=== PATIENT | female | born 1945 | race Caucasian/White ===

== ENCOUNTER 2024-08-25 18:47 | Inpatient (IN) | payer MEDICARE, BC ==
--- NOTE | 2024-08-25 18:55 | ED ---
General Adult HPI - General Stated complaint: AFIB Time Seen by Provider: 08/25/24 18:47 Source: RN notes reviewed, old records reviewed - History of Present Illness Initial comments: This is an 79-year-old female who presents to the emergency department stating that she was having no symptoms when all of a sudden her defibrillator went off at 103 times. Patient states she never had any chest pain palpitations difficulty breathing shortness of breath. Patient states she had the defibrillator placed about 6 months ago and she has never had a fire off before. According to EMS after the defibrillator fired they placed her on a monitor and it looked like she was in A-fib with rapid ventricular response. Patient currently is about 110 beats a minute according to EMS. Patient states she remains asymptomatic. Patient denies any recent fevers in the last 2 weeks she states about 2 weeks ago she did have RSV. Patient denies any abdominal pain patient denies any chest pain patient denies any headache patient denies nu mbness weakness. After patient was here couple hours she remembered that just prior to her defibrillator shocking her she had taken albuterol and felt very shaky. It was shortly after this time that the defibrillator shocked her 3 times. Patient states she has been on steroids since she had RSV. - Related Data Allergies Allergy/AdvReac Type Severity Reaction Status Date / Time Penicillins Allergy Rash/Hives Verified 08/25/24 18:58 codeine AdvReac Confusion Verified 08/25/24 18:58 Review of Systems ROS Statement: Those systems with pertinent positive or pertinent negative responses have been documented in the HPI. ROS Other: All systems not noted in ROS Statement are negative. General Exam - General Exam Comments Initial Comments: GENERAL: Patient is well-developed and well-nourished. Patient is nontoxic and well- hydrated and is in no acute distress. ENT: Neck is soft and supple. No significant lymphadenopathy is noted. Oropharynx is clear. Moist mucous membranes. Neck has full range of motion without eliciting any pain. EYES: The sclera were anicteric and conjunctiva were pink and moist. Extraocular movements were intact and pupils were equal round and reactive to light. Eyelids were unremarkable. PULMONARY: Unlabored respirations. Good breath sounds bilaterally. No audible rales rhonchi or wheezing was noted. CARDIOVASCULAR: Tachycardic at about 110 beats a minute ABDOMEN: Soft and nontender with normal bowel sounds. SKIN: Skin is clear with no lesions or rashes and otherwise unremarkable. NEUROLOGIC: Patient is alert and oriented x3. Cranial nerves II through XII are grossly intact. Motor and sensory are also intact. Normal speech, volume and content. Symmetrical smile. MUSCULOSKELETAL: Normal extremities with adequate strength and full range of motion. LYMPHATICS: No significant lymphadenopathy is noted PSYCHIATRIC: Normal psychiatric evaluation. Course Vital Signs 08/25/24 08/25/24 08/25/24 18:49 19:43 20:17 Temperature 97.6 F Pulse Rate 111 H 106 H 98 Respiratory 20 17 14 Rate Blood Pressure 143/118 135/57 110/75 O2 Sat by Pulse 97 95 94 L Oximetry 08/25/24 20:34 Temperature Pulse Rate 93 Respiratory 14 Rate Blood Pressure O2 Sat by Pulse 97 Oximetry Medical Decision Making - Medical Decision Making EKG is interpreted by myself but EKG shows a paced rhythm at 106 bpm. Over the 125 QRS of 142 QT interval 358 QTc is 420. Was pt. sent in by a medical professional or institution ([facility], [facility], urgent care, hospital, or assisted...) When possible be specific @ -No Did you speak to anyone other than the patient for history (EMS, parent, family, police, friend...)? What history was obtained from this source @ -No Did you review nursing and triage notes (agree or disagree)? Why? @ -I reviewed and agree with nursing and triage notes Were old charts reviewed (outside hosp., previous admission, EMS record, old EKG, old radiological studies, urgent care reports/EKG's, assisted records)? Report findings @ -No old charts were reviewed Differential Diagnosis? @ -Tachycardia, A-fib with rapid ventricular response, malfunctioning defibrillator. This is not an all-inclusive list EKG interpreted by me (3pts min.). @ -As above X-rays interpreted by me (1pt min.). @ -None done CT interpreted by me (1pt min.). @ -None done U/S interpreted by me (1pt. min.). @ -None done What testing was considered but not performed or refused? (CT, X-rays, U/S, labs)? Why? @ -None What meds were considered but not given or refused? Why? @ -None Did you discuss the management of the patient with other professionals (professionals i.e. Dr., PA, [facility], lab, RT, psych nurse, director of social work, global marketing specialist, teacher, chief fundraising officer, rn case manager)? Give summary @ -I spoke with Dr. Woody he agreed to admit the patient. Patient did not want any cardiology consult Was smoking cessation discussed for >3mins.? @ -No Was critical care preformed (if so, how long)? @ -No Were there social determinants of health that impacted care today? How? (Homelessness, low income, unemployed, alcoholism, drug addiction, transportation, low edu. Level, literacy, decrease access to med. care, group home, rehab)? @ -No Was there de-escalation of care discussed even if they declined (Discuss DNR or withdrawal of care, Hospice)? DNR status @ -No What co-morbidities impacted this encounter? (DM, HTN, Smoking, COPD, CAD, Cancer, CVA, ARF, Chemo, Hep., AIDS, mental health diagnosis, sleep apnea, morbid obesity)? @ -None Was patient admitted / discharged? Hospital course, mention meds given and route, prescriptions, significant lab abnormalities, going to OR and other pertinent info. @ -Patient was asymptomatic throughout her ED stay and had already converted into a paced rhythm while in the emergency department. Patient did have some abnormal labs she had elevated white count sugar of 523 potassium was 6.8 which was slightly hemolyzed a sodium of 129 and a troponin was 0.215. Patient's family and herself insisted on not having any cardiology involvement and I told this to Dr. Woody. Undiagnosed new problem with uncertain prognosis? @ -No Drug Therapy requiring intensive monitoring for toxicity (Heparin, Nitro, Insulin, Cardizem)? @ -No Were any procedures done? @ -No Diagnosis/symptom? @ -Defibrillator discharge Acute, or Chronic, or Acute on Chronic? @ -Default Uncomplicated (without systemic symptoms) or Complicated (systemic symptoms)? @ -Default Side effects of treatment? @ -No Exacerbation, Progression, or Severe Exacerbation? @ -No Poses a threat to life or bodily function? How? (Chest pain, [place], [place], pneumonia, PE, COPD, DKA, ARF, appy, cholecystitis, CVA, Diverticulitis, Homicidal, Suicidal, threat to staff... and all critical care pts) @ -Yes depending upon what arrhythmia occurred this could potentially kill the patient Diagnosis/symptom? @ -Hyperglycemia Acute, or Chronic, or Acute on Chronic? @ -Acute Uncomplicated (without systemic symptoms) or Complicated (systemic symptoms)? @ -Complicated Side effects of treatment? @ -None Exacerbation, Progression, or Severe Exacerbation] @ -No Poses a threat to life or bodily function? @ -Yes this could lead to severe dehydration and endorgan dysfunction Diagnosis/symptom? @ -Hyperkalemia Acute, or Chronic, or Acute on Chronic? @ -Default Uncomplicated (without systemic symptoms) or Complicated (systemic symptoms)? @ -Complicated Side effects of treatment? @ -None Exacerbation, Progression, or Severe Exacerbation] @ -No Poses a threat to life or bodily function? @ -Yes this can lead to a potential arrhythmia and Diagnosis/symptom? @ -Leukocytosis Acute, or Chronic, or Acute on Chronic? @ -Acute Uncomplicated (without systemic symptoms) or Complicated (systemic symptoms)? @ -Complicated Side effects of treatment? @ -None Exacerbation, Progression, or Severe Exacerbation] @ -No Poses a threat to life or bodily function? @ -No - Lab Data Result diagrams: 08/25/24 19:05 08/25/24 19:05 Lab Results 08/25/24 08/25/24 08/25/24 Range/Units 19:05 19:05 19:05 WBC 23.3 H (3.8-10.6) k/uL RBC 6.93 H (3.80-5.40) m/uL Hgb 17.5 H (11.4-16.0) gm/dL Hct 54.7 H (34.0-46.0) % MCV 78.9 L (80.0-100.0) fL MCH 25.3 (25.0-35.0) pg MCHC 32.1 (31.0-37.0) g/dL RDW 18.2 H (11.5-15.5) % Plt Count 156 (150-450) k/uL MPV 9.9 Neutrophils % 91 % Lymphocytes % 4 % Monocytes % 5 % Eosinophils % 0 % Basophils % 0 % Neutrophils # 21.2 H (1.3-7.7) k/uL Lymphocytes # 0.8 L (1.0-4.8) k/uL Monocytes # 1.1 H (0-1.0) k/uL Eosinophils # 0.0 (0-0.7) k/uL Basophils # 0.1 (0-0.2) k/uL Hypochromasia Slight Anisocytosis Slight Microcytosis Slight PT 10.8 (10.0-12.5) sec INR 1.0 (<1.2) APTT 21.3 L (22.0-30.0) sec Sodium 129 L (137-145) mmol/L Potassium 6.0 H (3.5-5.1) mmol/L Chloride 94 L (98-107) mmol/L Carbon Dioxide 18 L (22-30) mmol/L Anion Gap 17 mmol/L BUN 87 H (7-17) mg/dL Creatinine 1.65 H (0.52-1.04) mg/dL Est GFR (CKD-EPI)AfAm 34 (>60 ml/min/1.73 sqM) Est GFR (CKD-EPI)NonAf 29 (>60 ml/min/1.73 sqM) Glucose 579 H* (74-99) mg/dL POC Glucose (mg/dL) (70-110) mg/dL POC Glu Linen Room Supervisor ID Calcium 8.9 (8.4-10.2) mg/dL Magnesium 2.0 (1.6-2.3) mg/dL Total Bilirubin 1.6 H (0.2-1.3) mg/dL AST 47 H (14-36) U/L ALT 56 H (4-34) U/L Alkaline Phosphatase 144 H (38-126) U/L Troponin I (0.000-0.034) ng/mL Total Protein 7.4 (6.3-8.2) g/dL Albumin 4.2 (3.5-5.0) g/dL TSH 0.272 L (0.465-4.680) mIU/L Acetone, Qual (Negative) 08/25/24 08/25/24 08/25/24 Range/Units 19:05 19:05 20:09 WBC (3.8-10.6) k/uL RBC (3.80-5.40) m/uL Hgb (11.4-16.0) gm/dL Hct (34.0-46.0) % MCV (80.0-100.0) fL MCH (25.0-35.0) pg MCHC (31.0-37.0) g/dL RDW (11.5-15.5) % Plt Count (150-450) k/uL MPV Neutrophils % % Lymphocytes % % Monocytes % % Eosinophils % % Basophils % % Neutrophils # (1.3-7.7) k/uL Lymphocytes # (1.0-4.8) k/uL Monocytes # (0-1.0) k/uL Eosinophils # (0-0.7) k/uL Basophils # (0-0.2) k/uL Hypochromasia Anisocytosis Microcytosis PT (10.0-12.5) sec INR (<1.2) APTT (22.0-30.0) sec Sodium (137-145) mmol/L Potassium (3.5-5.1) mmol/L Chloride (98-107) mmol/L Carbon Dioxide (22-30) mmol/L Anion Gap mmol/L BUN (7-17) mg/dL Creatinine (0.52-1.04) mg/dL Est GFR (CKD-EPI)AfAm (>60 ml/min/1.73 sqM) Est GFR (CKD-EPI)NonAf (>60 ml/min/1.73 sqM) Glucose (74-99) mg/dL POC Glucose (mg/dL) 523 H* (70-110) mg/dL POC Glu Linen Room Supervisor ID Martina Arthur Calcium (8.4-10.2) mg/dL Magnesium (1.6-2.3) mg/dL Total Bilirubin (0.2-1.3) mg/dL AST (14-36) U/L ALT (4-34) U/L Alkaline Phosphatase (38-126) U/L Troponin I 0.215 H* (0.000-0.034) ng/mL Total Protein (6.3-8.2) g/dL Albumin (3.5-5.0) g/dL TSH (0.465-4.680) mIU/L Acetone, Qual Negative (Negative) Disposition Clinical Impression: Defibrillator discharge, Hyperglycemia, Hyponatremia, Hyperkalemia, Elevated troponin Disposition: ADMITTED IP TO THIS HOSP Referrals: Myke Woody MD [Primary Care Provider] - 1-2 days Time of Disposition: 20:48
[2024-08-25] MEDS: SODIUM CHLORIDE 0.9% 500 ML 500 ML IV STA (19:17)
[2024-08-25] MEDS: MAGNESIUM SULFATE-D5W PMX 1 GM in DEXTROSE/WATER 1 100ML.BAG IVPB STA (19:17)
[2024-08-25 19:29] LABS: ALT 56 U/L (4-34); AST 47 U/L (14-36); African American GFR (CKD) 34 (>60 ml/min/1.73 sqM); Anion Gap 17 mmol/L; Blood Urea Nitrogen 87 mg/dL (7-17); Calcium 8.9 mg/dL (8.4-10.2); Carbon Dioxide 18 mmol/L (22-30); Chloride 94 mmol/L (98-107); Non-African American GFR(CKD) 29 (>60 ml/min/1.73 sqM); Sodium 129 mmol/L (137-145); Total Bilirubin 1.6 mg/dL (0.2-1.3)
[2024-08-25 19:34] LABS: Anisocytosis Slight; Basophils # (A) 0.1 k/uL (0-0.2); Basophils % (A) 0 %; Eosinophils % (A) 0 %; HCT 54.7 % (34.0-46.0); HGB 17.5 gm/dL (11.4-16.0); Hypochromasia Slight; Lymphocytes # (A) 0.8 k/uL (1.0-4.8); Lymphocytes % (A) 4 %; MCH 25.3 pg (25.0-35.0); MCHC 32.1 g/dL (31.0-37.0); MCV 78.9 fL (80.0-100.0); Mean Platelet Volume 9.9; Microcytosis Slight; Monocytes # (A) 1.1 k/uL (0-1.0); Monocytes % (A) 5 %; Neutrophils # (A) 21.2 k/uL (1.3-7.7); Neutrophils % (A) 91 %; Platelet Count 156 k/uL (150-450); RBC 6.93 m/uL (3.80-5.40); RDW 18.2 % (11.5-15.5); WBC 23.3 k/uL (3.8-10.6)
[2024-08-25 19:51] LABS: Alkaline Phosphatase 144 U/L (38-126); Glucose 579 mg/dL (74-99)
[2024-08-25 19:52] LABS: Albumin 4.2 g/dL (3.5-5.0); Total Protein 7.4 g/dL (6.3-8.2)
--- NOTE | 2024-08-25 19:56 | XR ---
EXAMINATION TYPE: XR chest 2V DATE OF EXAM: 08/25/2024 7:49 PM COMPARISON: None. CLINICAL INDICATION: Female, 79 years old with history of dysrhythmia, TECHNIQUE: XR chest 2V view(s) obtained. FINDINGS: The heart size is normal. The pulmonary vasculature is normal. The lungs are clear. Pacemaker overlies the left chest sternotomy wires are in the midline IMPRESSION: 1. No acute pulmonary process. [facility], , 08/25/2024 7:54 PM
[2024-08-25 20:10] LABS: Glucose,Whole Blood 523 mg/dL (70-110)
[2024-08-25 20:22] LABS: Prothrombin Time 10.8 sec (10.0-12.5)
[2024-08-25 20:23] LABS: Partial Thromboplastin Time 21.3 sec (22.0-30.0)
[2024-08-25] MEDS: INSULIN ASPART (NovoLOG) 100 UNIT/ML VIAL SQ ONE (20:33)
[2024-08-25] MEDS ORDERED: DEXTROSE 50% SYRINGE 50 ML IVP PRN ×2 (20:54)
[2024-08-25 20:59] LABS: Glucose,Whole Blood 578 mg/dL (70-110)
[2024-08-25 21:42] LABS: Glucose,Whole Blood 474 mg/dL (70-110)
[2024-08-25] MEDS: SODIUM CHLORIDE 0.9% 1,000 ML IV SCH (21:58)
[2024-08-25] MEDS: SODIUM CHLORIDE 0.9% 500 ML 500 ML IV ONE (22:01)
[2024-08-25] MEDS: SODIUM ZIRCONIUM CYCLOSILICATE 10 GM PACKET PO ONE (22:02)
[2024-08-25] MEDS: INSULIN ASPART (NovoLOG) 100 UNIT/ML VIAL SQ SCH (22:08)
[2024-08-25] MEDS: HEPARIN SODIUM 1,000 UN/ML (10ML VL) IV ONE (23:24)
[2024-08-25] MEDS: HEPARIN SOD,PORK IN 0.45% NACL 25,000 UNIT in 0.45% NACL 1 250ML.BAG IV SCH (23:25)
--- NOTE | 2024-08-26 01:01 | CT ---
EXAM: CT Chest Without Intravenous Contrast CLINICAL HISTORY: ITS.REASON CT Reason: Poss pneumonia. RSV positive TECHNIQUE: Axial computed tomography images of the chest without intravenous contrast. CTDI is 6.7 mGy and DLP is 300.4 mGy-cm. This CT exam was performed using one or more of the following dose reduction techniques: automated exposure control, adjustment of the mA and/or kV according to patient size, and/or use of iterative reconstruction technique. COMPARISON: No relevant prior studies available. FINDINGS: Lungs: Unremarkable. No mass. No consolidation. Pleural space: Unremarkable. No pneumothorax. No significant effusion. Heart: LEFT atrial appendage clip. No cardiomegaly. No significant pericardial effusion. No significant coronary artery calcifications. Bones/joints: Sternotomy wires. Degenerative changes of the spine. No acute fracture. No dislocation. Soft tissues: Unremarkable. Vasculature: Atherosclerotic changes of the aorta. No thoracic aortic aneurysm. Lymph nodes: Unremarkable. No enlarged lymph nodes. Gallbladder and bile ducts: Cholelithiasis. Tubes, lines and devices: Pacemaker leads. IMPRESSION: No acute findings in the chest.
[2024-08-26 07:32] LABS: Glucose,Whole Blood 129 mg/dL (70-110)
[2024-08-26 07:34] LABS: Anisocytosis Slight; Basophils # (A) 0.1 k/uL (0-0.2); Basophils % (A) 0 %; Eosinophils # (A) 0.1 k/uL (0-0.7); Eosinophils % (A) 1 %; HCT 51.2 % (34.0-46.0); HGB 16.6 gm/dL (11.4-16.0); Lymphocytes # (A) 3.4 k/uL (1.0-4.8); Lymphocytes % (A) 15 %; MCHC 32.4 g/dL (31.0-37.0); MCV 77.1 fL (80.0-100.0); Mean Platelet Volume 8.4; Microcytosis Slight; Monocytes # (A) 1.2 k/uL (0-1.0); Monocytes % (A) 5 %; Neutrophils # (A) 18.2 k/uL (1.3-7.7); Neutrophils % (A) 78 %; Platelet Count 174 k/uL (150-450); RBC 6.64 m/uL (3.80-5.40); RDW 18.1 % (11.5-15.5); WBC 23.2 k/uL (3.8-10.6)
[2024-08-26] MEDS: NITROGLYCERIN SL TABS 0.4 MG TAB SUBLINGUAL PRN (07:58)
[2024-08-26] MEDS: ASPIRIN 325 MG TAB PO SCH (08:08)
[2024-08-26 08:43] LABS: ALT 46 U/L (4-34); AST 33 U/L (14-36); African American GFR (CKD) 38 (>60 ml/min/1.73 sqM); Albumin 3.7 g/dL (3.5-5.0); Alkaline Phosphatase 139 U/L (38-126); Anion Gap 12 mmol/L; Blood Urea Nitrogen 79 mg/dL (7-17); Carbon Dioxide 23 mmol/L (22-30); Chloride 103 mmol/L (98-107); Glucose 148 mg/dL (74-99); Non-African American GFR(CKD) 33 (>60 ml/min/1.73 sqM); Potassium 4.3 mmol/L (3.5-5.1); Sodium 138 mmol/L (137-145); Total Bilirubin 1.2 mg/dL (0.2-1.3); Total Protein 6.4 g/dL (6.3-8.2)
[2024-08-26] MEDS: METOPROLOL TARTRATE 25 MG TAB PO SCH (09:36)
[2024-08-26] MEDS: SACUBITRIL/VALSARTAN 24 MG-26 MG TABLET PO SCH (09:37)
[2024-08-26] MEDS: DAPAGLIFLOZIN PROPANEDIOL 10 MG TABLET PO SCH (09:37)
[2024-08-26] MEDS: NITROGLYCERIN OINT 1 INCH/GM PACKET TOPICAL SCH (09:38)
[2024-08-26] MEDS: DEXTROSE 5% IN WATER 100 ML with AMIODARONE 150 MG IV ONE (10:12)
[2024-08-26] MEDS: AMIODARONE 360 MG in DEXTROSE 5% IN WATER 200 ML IV ONE (10:38)
[2024-08-26] MEDS ORDERED: IPRATROPIUM-ALBUTEROL 3 ML NEB INHALATION PRN (10:40)
[2024-08-26] MEDS ORDERED: ALBUTEROL HFA INHALER INHALATION PRN (10:40)
[2024-08-26] MEDS ORDERED: DEXTROSE 50% SYRINGE 50 ML IVP PRN ×2 (10:41)
[2024-08-26] MEDS: PANTOPRAZOLE 40 MG TABLET PO SCH (11:02)
[2024-08-26] MEDS: methIMAzole 5 MG TAB PO SCH (11:03)
[2024-08-26] MEDS: INSULIN DETEMIR (LEVEMIR) 100 UNIT/ML SYR SQ SCH (11:03)
[2024-08-26] MEDS: NON FORMULARY DRUG (Empagliflozin [Jardiance] 25 MG Tablet) PO SCH (11:06)
[2024-08-26 11:11] LABS: Glucose,Whole Blood 273 mg/dL (70-110)
[2024-08-26 11:26] LABS: Chol/HDL Ratio 2.44 Ratio
[2024-08-26 12:21] LABS: Glucose,Whole Blood 282 mg/dL (70-110)
--- NOTE | 2024-08-26 13:36 | P.CRDCN ---
History of Present Illness Consult date: 08/26/24 Reason for Consult (text): Elevated troponin History of present illness: This is an 79-year-old female patient that follows with a payroll secretary at [facility] with past medical history of syncopal episode in August 2022, coronary artery disease status post CABG with OROURKE to LAD, SVG to OM 2 in January 2023, left bundle branch block, ischemic cardiomyopathy with chronic heart failure with reduced EF of 30 to 35% followed by reduction to 20% status post AICD 02/03/2024, atrial fibrillation, status post Watchman procedure, bilateral carotid surgery, PAD left lower extremity worse than right, dyslipidemia and hypertriglyceridemia, diabetes mellitus type 2, hypertension, former smoker, hyperthyroidism. We have been asked to evaluate the patient for elevated troponins. Patient presented to the hospital because her defibrillator went off. Patient states that she recently treated for RSV and was at [facility] at the beginning of August. She has an albuterol nebulizer treatment that she used for the first time yesterday and was feeling quite shaky after that. Patient went to pickle maker a pop that her daughter was giving her and she felt her ICD go off. She feels that it went off about 3-4 times. She also had some chest pain this morning that she described as a 7 out of 10. Her blood pressure was elevated as well when she arrived. Regarding RSV, she only has a small amount of cough left. Blood pressure 127/74, heart rate 89, pulse ox 94% on room air, afebrile. Patient is seen today in the emergency center waiting for bed on the cardiac stepdown unit. ICD interrogation reviewed which revealed episode of atrial fibrillation, 2 episodes of SVT, to ventricular fibrillation and a total of 4 shocks were given. -EKG: Paced rhythm with ventricular rate of 106, #2 paced rhythm at 72 bpm -Chest x-ray: No acute process. -CT chest: No acute findings. -Laboratory studies: WBC 23.2, hemoglobin 16.6, platelet count 174. Sodium 129, potassium 6.0, CO2 18, BUN 87 and creatinine 1.65. Troponins 0.215, 1.27, 1.85. TSH 0.272. Acetone negative. -Home cardiac medications: Atorvastatin 40 mg at bedtime, Plavix 75 mg daily, Jardiance 25 mg daily Review Of Systems: At the time of my exam: CONSTITUTIONAL: Denies fever or chills. HEENT: Denies blurred vision, vision changes, or eye pain. Denies hemoptysis CARDIOVASCULAR: Reports chest pain. Denies orthopnea. Denies PND. Denies palpitations RESPIRATORY: Denies shortness of breath. GASTROINTESTINAL: Denies abdominal pain. Denies nausea or vomiting. HEMATOLOGIC: Denies bleeding disorders. GENITOURINARY: Denies any blood in urine. SKIN: Denies puritis. Denies rash. Physical examination: Gen: This is 79-year-old female in no acute distress VS: reviewed HEENT: Head is atraumatic, normocephalic. Pupils equal, round. Sclerae is anicteric. NECK: Supple. No JVD. LUNGS: Clear to auscultation. No wheezes or rhonchi. No intercostal retractions. HEART: Regular rate and rhythm. No murmur. ABDOMEN: Soft No tenderness. EXTREMITIES: No pedal edema. No calf tenderness. NEUROLOGICAL: Patient is awake, alert and oriented x3. Assessment: Atrial fibrillation with RVR V. tach status post 4 shocks from defibrillator Ischemic cardiomyopathy status post AICD Diabetes mellitus type 2 Hyponatremia Hyperkalemia Elevated troponin secondary to defibrillator discharge Chest pain secondary to defibrillator discharge Plan: Resume patient's home cardiac medications with the following changes Start patient on amiodarone with a bolus followed by drip per protocol Start patient on Lopressor 25 mg twice daily Attempted Nitropaste but blood pressure would not tolerate was discontinued Start patient on Entresto 24-26 mg 1 time daily Obtain 2-D echocardiogram and Doppler study to assess cardiac structure and function Further recommendations to follow based upon clinical course Thank you kindly for this consultation. Nurse practitioner note has been reviewed, I agree with documented findings and plan of care. Patient was seen and examined. Past Medical History Past Medical History: Heart Failure, Diabetes Mellitus, Hypertension History of Any Multi-Drug Resistant Organisms: None Reported Past Surgical History: Pacemaker Additional Past Surgical History / Comment(s): double bypass 2022, watchman 2023 Past Psychological History: No Psychological Hx Reported Smoking Status: Never smoker Past Alcohol Use History: None Reported Past Drug Use History: None Reported Medications and Allergies Home Medications Medication Instructions Recorded Confirmed Type Albuterol Sulfate [Albuterol 2 puff PO RT-QID PRN 08/26/24 08/26/24 History Sulfate Hfa] Atorvastatin [Lipitor] 40 mg PO HS 08/26/24 08/26/24 History Clopidogrel [Plavix] 75 mg PO DAILY 08/26/24 08/26/24 History Empagliflozin [Jardiance] 25 mg PO DAILY 08/26/24 08/26/24 History Insulin Glargine,Hum.rec.anlog 20 units SQ DAILY 08/26/24 08/26/24 History [Toujeo Max Solostar] Ipratropium-Albuterol Nebulize 3 ml INHALATION RT-Q6H PRN 08/26/24 08/26/24 History [Duoneb 0.5 mg-3 mg/3 ml Soln] Pantoprazole [Protonix] 40 mg PO DAILY 08/26/24 08/26/24 History methIMAzole [Tapazole] 5 mg PO BID 08/26/24 08/26/24 History Allergies Allergy/AdvReac Type Severity Reaction Status Date / Time Penicillins Allergy Rash/Hives Verified 08/25/24 18:58 codeine AdvReac Confusion Verified 08/25/24 18:58 Physical Exam Vitals: Vital Signs Temp Pulse Resp BP Pulse Ox 08/26/24 07:36 97.5 F L 89 16 127/74 94 L 08/26/24 05:58 97.5 F L 77 15 116/85 100 08/26/24 00:00 79 20 124/78 95 08/25/24 22:38 85 17 130/77 96 08/25/24 20:34 93 14 97 08/25/24 20:17 98 14 110/75 94 L 08/25/24 19:43 106 H 17 135/57 95 08/25/24 18:49 97.6 F 111 H 20 143/118 97 Intake and Output 08/25/24 08/26/24 08/26/24 22:59 06:59 14:59 Other: Weight 67.585 kg Results 08/26/24 07:16 08/26/24 07:16 Cardiac Enzymes 08/25/24 08/25/24 08/25/24 Range/Units 19:05 19:05 22:07 AST 47 H (14-36) U/L Troponin I 0.215 H* 1.270 H* (0.000-0.034) ng/mL 08/26/24 Range/Units 00:53 AST (14-36) U/L Troponin I 1.850 H* (0.000-0.034) ng/mL Coagulation 08/25/24 Range/Units 19:05 PT 10.8 (10.0-12.5) sec APTT 21.3 L (22.0-30.0) sec CBC 08/25/24 08/26/24 Range/Units 19:05 07:16 WBC 23.3 H 23.2 H (3.8-10.6) k/uL RBC 6.93 H 6.64 H (3.80-5.40) m/uL Hgb 17.5 H 16.6 H (11.4-16.0) gm/dL Hct 54.7 H 51.2 H (34.0-46.0) % Plt Count 156 174 (150-450) k/uL Comprehensive Metabolic Panel 08/25/24 Range/Units 19:05 Sodium 129 L (137-145) mmol/L Potassium 6.0 H (3.5-5.1) mmol/L Chloride 94 L (98-107) mmol/L Carbon Dioxide 18 L (22-30) mmol/L BUN 87 H (7-17) mg/dL Creatinine 1.65 H (0.52-1.04) mg/dL Glucose 579 H* (74-99) mg/dL Calcium 8.9 (8.4-10.2) mg/dL AST 47 H (14-36) U/L ALT 56 H (4-34) U/L Alkaline Phosphatase 144 H (38-126) U/L Total Protein 7.4 (6.3-8.2) g/dL Albumin 4.2 (3.5-5.0) g/dL Current Medications Generic Name Dose Route Start Last Admin Trade Name Freq PRN Reason Stop Dose Admin Aspirin 325 mg 08/26/24 09:00 Aspirin 325 Mg Tab PO DAILY SARAH Dextrose/Water 25 ml 08/25/24 20:54 Dextrose 50% Syringe 50 Ml IVP PER PROTOCOL PRN Hypoglycemia Protocol Dextrose/Water 50 ml 08/25/24 20:54 Dextrose 50% Syringe 50 Ml IVP PER PROTOCOL PRN Hypoglycemia Protocol Sodium Chloride 1,000 mls @ 75 mls/hr 08/25/24 21:00 08/25/24 21:58 Saline 0.9% IV 75 mls/hr .[id number] SARAH Administration Heparin Sodium/Sodium Chloride 250 mls @ 8.11 mls/hr 08/25/24 23:15 08/25/24 23:25 25,000 unit/ Sodium Chloride IV 12 units/kg/hr .Q24H SARAH 8.11 mls/hr Administration Protocol 12 UNITS/KG/HR Insulin Aspart 0 unit 08/25/24 21:00 08/25/24 22:08 Insulin Aspart (Novolog) 100 Unit/Ml Vial SQ 6 unit ACHS SARAH Administration Protocol Nitroglycerin 0.4 mg 08/25/24 20:49 Nitroglycerin Sl Tabs 0.4 Mg Tab SUBLINGUAL Q5M PRN Chest Pain Intake and Output 08/25/24 08/26/24 08/26/24 22:59 06:59 14:59 Other: Weight 67.585 kg 08/26/24 07:16 08/25/24 19:05
[2024-08-26] MEDS: CLOPIDOGREL 75 MG TAB PO SCH (14:22)
[2024-08-26] MEDS: AMIODARONE 450 MG in DEXTROSE 5% IN WATER 250 ML IV SCH (15:53)
[2024-08-26 17:24] LABS: Glucose,Whole Blood 241 mg/dL (70-110)
--- NOTE | 2024-08-26 18:15 | P.HPIM ---
History of Present Illness H&P Date: 08/26/24 Chief Complaint: AICD shock I am rounding for Myke Woody, who is unwell Very pleasant 79-year-old patient who follows with Dr. Myke Woody. Patient is follows with her pipe fitter street service done at [facility]. Prior history of coronary bypass. Recently [facility] where she was treated for RSV. She took her first treatment of DuoNeb today. Her AICD went off 3 times. And he decided to come to the ER. AICD interrogation showed patient had SVT then ventricular fibrillation. Then atrial fibrillation. She was shocked 4 times. Patient seen by cardiology earlier started on IV amiodarone and IV heparin. Patient also received some nitroglycerin and then dropped her blood pressure. Advised sitting up. Feeling comfortable. Having some anterior chest wall pain. Feeling better though. Review of systems: GEN.: Tired EYES: None HEENT: None NECK: None RESPIRATORY: None CARDIOVASCULAR: [As above GASTROINTESTINAL: None GENITOURINARY: None MUSCULOSKELETAL: None LYMPHATICS: None HEMATOLOGICAL: None PSYCHIATRY: None NEUROLOGICAL: None Social history: . Does not smoke or drink alcohol. Physical examination: VITAL SIGNS: 97.5, 70, 16, 97 x 55, 99% on 2 L GENERAL: BMI 28.2, regular bed awake not in distress. EYES: Pupils equal. Conjunctiva rachel l. HEENT: External appearance of nose and ears normal, oral cavity grossly normal. NECK: JVD not raised; masses not palpable. HEART: First and second heart sounds are normal; no edema. LUNGS: Respiratory rate normal; clear to auscultation. ABDOMEN: Soft, nontender, liver spleen not palpable, no masses palpable. PSYCH: Alert and oriented x3; mood and affect rachel l. MUSCULOSKELETAL:No Clubbing/cyanosis;muscles-grossly intact. OA NEUROLOGICAL: Cranial nerves grossly intact; no facial asymmetry, power and sensation grossly intact. LYMPHATICS: No lymph nodes palpable in the axilla and neck INVESTIGATIONS, reviewed in the clinical context: August 26: White count 23.2 hemoglobin 16.6 platelets 134 sodium 138 potassium 4.3 BUN 79 creatinine 1.49 blood glucose 148 AST 33 ALT 46 EKG tracing personally reviewed by me-ventricular paced rhythm LDL 68 CT chest: Unremarkable sternotomy wires. Chest x-ray film personally reviewed by me-unremarkable. AICD/pacemaker Assessment plan: -Recurrent SVT, ventricular fibrillation then A-fib as per interrogation as patient came in for AICD firing of at least 3 times at home. IV amiodarone. IV heparin. Cardiology following. -Hyperlipidemia Lipitor 40 mg nightly -GERD Protonix 40 mg a day -Diabetes mellitus type 2 chronically on insulin Lantus. Follow Accu-Cheks with sliding scale. Jardiance. -Hyperthyroidism Tapazole Care was discussed with the patient. Questions answered. Follow-up with cardiology. Past Medical History Past Medical History: Heart Failure, Diabetes Mellitus, Hypertension History of Any Multi-Drug Resistant Organisms: None Reported Past Surgical History: Pacemaker Additional Past Surgical History / Comment(s): double bypass 2022, watchman 2023 Past Psychological History: No Psychological Hx Reported Smoking Status: Never smoker Past Alcohol Use History: None Reported Past Drug Use History: None Reported Medications and Allergies Home Medications Medication Instructions Recorded Confirmed Type Albuterol Sulfate [Albuterol 2 puff PO RT-QID PRN 08/26/24 08/26/24 History Sulfate Hfa] Atorvastatin [Lipitor] 40 mg PO HS 08/26/24 08/26/24 History Clopidogrel [Plavix] 75 mg PO DAILY 08/26/24 08/26/24 History Empagliflozin [Jardiance] 25 mg PO DAILY 08/26/24 08/26/24 History Insulin Glargine,Hum.rec.anlog 20 units SQ DAILY 08/26/24 08/26/24 History [Toujeo Max Solostar] Ipratropium-Albuterol Nebulize 3 ml INHALATION RT-Q6H PRN 08/26/24 08/26/24 History [Duoneb 0.5 mg-3 mg/3 ml Soln] Pantoprazole [Protonix] 40 mg PO DAILY 08/26/24 08/26/24 History methIMAzole [Tapazole] 5 mg PO BID 08/26/24 08/26/24 History Allergies Allergy/AdvReac Type Severity Reaction Status Date / Time Penicillins Allergy Rash/Hives Verified 08/25/24 18:58 codeine AdvReac Confusion Verified 08/25/24 18:58 Physical Exam Vitals: Vital Signs Temp Pulse Resp BP Pulse Ox 08/26/24 10:38 60 16 69/40 08/26/24 10:17 60 18 111/70 08/26/24 09:46 130/75 08/26/24 09:31 70 16 144/72 100 08/26/24 08:30 68 146/70 99 08/26/24 08:17 71 16 153/89 98 08/26/24 08:11 100/75 08/26/24 08:09 78 16 88/64 98 08/26/24 08:00 70 16 97/55 99 08/26/24 07:54 72 16 198/101 100 08/26/24 07:36 97.5 F L 89 16 127/74 94 L 08/26/24 05:58 97.5 F L 77 15 116/85 100 08/26/24 00:00 79 20 124/78 95 08/25/24 22:38 85 17 130/77 96 08/25/24 20:34 93 14 97 08/25/24 20:17 98 14 110/75 94 L 08/25/24 19:43 106 H 17 135/57 95 08/25/24 18:49 97.6 F 111 H 20 143/118 97 Intake and Output 08/25/24 08/26/24 08/26/24 22:59 06:59 14:59 Intake Total 71.503 Balance 71.503 Intake: Intake, IV Titration 71.503 Amount Heparin Sod,Pork in 0.45% 71.503 NaCl 25,000 unit In 0.45 % NaCl 1 250ml.bag @ 12 UNITS/KG/HR 8.11 mls/hr IV .Q24H [facility] Rx#: [id number] Other: Weight 67.585 kg Results CBC & Chem 7: 08/26/24 07:16 08/26/24 07:16 Labs: Abnormal Lab Results - Last 24 Hours (Table) 08/25/24 08/25/24 08/25/24 Range/Units 19:05 19:05 19:05 WBC 23.3 H (3.8-10.6) k/uL RBC 6.93 H (3.80-5.40) m/uL Hgb 17.5 H (11.4-16.0) gm/dL Hct 54.7 H (34.0-46.0) % MCV 78.9 L (80.0-100.0) fL RDW 18.2 H (11.5-15.5) % Neutrophils # 21.2 H (1.3-7.7) k/uL Lymphocytes # 0.8 L (1.0-4.8) k/uL Monocytes # 1.1 H (0-1.0) k/uL APTT 21.3 L (22.0-30.0) sec Sodium 129 L (137-145) mmol/L Potassium 6.0 H (3.5-5.1) mmol/L Chloride 94 L (98-107) mmol/L Carbon Dioxide 18 L (22-30) mmol/L BUN 87 H (7-17) mg/dL Creatinine 1.65 H (0.52-1.04) mg/dL Glucose 579 H* (74-99) mg/dL POC Glucose (mg/dL) (70-110) mg/dL Total Bilirubin 1.6 H (0.2-1.3) mg/dL AST 47 H (14-36) U/L ALT 56 H (4-34) U/L Alkaline Phosphatase 144 H (38-126) U/L Troponin I (0.000-0.034) ng/mL TSH 0.272 L (0.465-4.680) mIU/L 08/25/24 08/25/24 08/25/24 Range/Units 19:05 20:09 20:58 WBC (3.8-10.6) k/uL RBC (3.80-5.40) m/uL Hgb (11.4-16.0) gm/dL Hct (34.0-46.0) % MCV (80.0-100.0) fL RDW (11.5-15.5) % Neutrophils # (1.3-7.7) k/uL Lymphocytes # (1.0-4.8) k/uL Monocytes # (0-1.0) k/uL APTT (22.0-30.0) sec Sodium (137-145) mmol/L Potassium (3.5-5.1) mmol/L Chloride (98-107) mmol/L Carbon Dioxide (22-30) mmol/L BUN (7-17) mg/dL Creatinine (0.52-1.04) mg/dL Glucose (74-99) mg/dL POC Glucose (mg/dL) 523 H* 578 H* (70-110) mg/dL Total Bilirubin (0.2-1.3) mg/dL AST (14-36) U/L ALT (4-34) U/L Alkaline Phosphatase (38-126) U/L Troponin I 0.215 H* (0.000-0.034) ng/mL TSH (0.465-4.680) mIU/L 08/25/24 08/25/24 08/26/24 Range/Units 21:41 22:07 00:53 WBC (3.8-10.6) k/uL RBC (3.80-5.40) m/uL Hgb (11.4-16.0) gm/dL Hct (34.0-46.0) % MCV (80.0-100.0) fL RDW (11.5-15.5) % Neutrophils # (1.3-7.7) k/uL Lymphocytes # (1.0-4.8) k/uL Monocytes # (0-1.0) k/uL APTT (22.0-30.0) sec Sodium (137-145) mmol/L Potassium (3.5-5.1) mmol/L Chloride (98-107) mmol/L Carbon Dioxide (22-30) mmol/L BUN (7-17) mg/dL Creatinine (0.52-1.04) mg/dL Glucose (74-99) mg/dL POC Glucose (mg/dL) 474 H (70-110) mg/dL Total Bilirubin (0.2-1.3) mg/dL AST (14-36) U/L ALT (4-34) U/L Alkaline Phosphatase (38-126) U/L Troponin I 1.270 H* 1.850 H* (0.000-0.034) ng/mL TSH (0.465-4.680) mIU/L 08/26/24 08/26/24 08/26/24 Range/Units 07:16 07:16 07:16 WBC 23.2 H (3.8-10.6) k/uL RBC 6.64 H (3.80-5.40) m/uL Hgb 16.6 H (11.4-16.0) gm/dL Hct 51.2 H (34.0-46.0) % MCV 77.1 L (80.0-100.0) fL RDW 18.1 H (11.5-15.5) % Neutrophils # 18.2 H (1.3-7.7) k/uL Lymphocytes # (1.0-4.8) k/uL Monocytes # 1.2 H (0-1.0) k/uL APTT 65.5 H (22.0-30.0) sec Sodium (137-145) mmol/L Potassium (3.5-5.1) mmol/L Chloride (98-107) mmol/L Carbon Dioxide (22-30) mmol/L BUN 79 H (7-17) mg/dL Creatinine 1.49 H (0.52-1.04) mg/dL Glucose 148 H (74-99) mg/dL POC Glucose (mg/dL) (70-110) mg/dL Total Bilirubin (0.2-1.3) mg/dL AST (14-36) U/L ALT 46 H (4-34) U/L Alkaline Phosphatase 139 H (38-126) U/L Troponin I (0.000-0.034) ng/mL TSH (0.465-4.680) mIU/L 08/26/24 Range/Units 07:30 WBC (3.8-10.6) k/uL RBC (3.80-5.40) m/uL Hgb (11.4-16.0) gm/dL Hct (34.0-46.0) % MCV (80.0-100.0) fL RDW (11.5-15.5) % Neutrophils # (1.3-7.7) k/uL Lymphocytes # (1.0-4.8) k/uL Monocytes # (0-1.0) k/uL APTT (22.0-30.0) sec Sodium (137-145) mmol/L Potassium (3.5-5.1) mmol/L Chloride (98-107) mmol/L Carbon Dioxide (22-30) mmol/L BUN (7-17) mg/dL Creatinine (0.52-1.04) mg/dL Glucose (74-99) mg/dL POC Glucose (mg/dL) 129 H (70-110) mg/dL Total Bilirubin (0.2-1.3) mg/dL AST (14-36) U/L ALT (4-34) U/L Alkaline Phosphatase (38-126) U/L Troponin I (0.000-0.034) ng/mL TSH (0.465-4.680) mIU/L
[2024-08-26] MEDS: ATORVASTATIN 40 MG TAB PO SCH (19:45)
[2024-08-26 20:09] LABS: Glucose,Whole Blood 323 mg/dL (70-110)
[2024-08-27 06:10] LABS: Glucose,Whole Blood 101 mg/dL (70-110)
[2024-08-27 11:12] VITALS: BMI 30.7
[2024-08-27 11:26] LABS: Glucose,Whole Blood 155 mg/dL (70-110)
[2024-08-27] MEDS: AMIODARONE 200 MG TAB PO SCH (12:09)
--- NOTE | 2024-08-27 15:19 | P.PN ---
Subjective Progress Note Date: 08/27/24 Reason for Consult (text): Elevated troponin History of present illness: This is an 79-year-old female patient that follows with a buckle coverer at [facility] with past medical history of syncopal episode in August 2022, coronary artery disease status post CABG with OROURKE to LAD, SVG to OM 2 in January 2023, left bundle branch block, ischemic cardiomyopathy with chronic heart failure with reduced EF of 30 to 35% followed by reduction to 20% status post AICD 02/03/2024, atrial fibrillation, status post Watchman procedure, bilateral carotid surgery, PAD left lower extremity worse than right, dyslipidemia and hypertriglyceridemia, diabetes mellitus type 2, hypertension, former smoker, hyperthyroidism. We have been asked to evaluate the patient for elevated troponins. Patient presented to the hospital because her defibrillator went off. Patient states that she recently treated for RSV and was at [facility] at the beginning of August. She has an albuterol nebulizer treatment that she used for the first time yesterday and was feeling quite shaky after that. Patient went to orange picker machine operator a pop that her daughter was giving her and she felt her ICD go off. She feels that it went off about 3-4 times. She also had some chest pain this morning that she described as a 7 out of 10. Her blood pressure was elevated as well when she arrived. Regarding RSV, she only has a small amount of cough left. Blood pressure 127/74, heart rate 89, pulse ox 94% on room air, afebrile. Patient is seen today in the emergency center waiting for bed on the cardiac stepdown unit. ICD interrogation reviewed which revealed episode of atrial fibrillation, 2 episodes of SVT, to ventricular fibrillation and a total of 4 shocks were given. -EKG: Paced rhythm with ventricular rate of 106, #2 paced rhythm at 72 bpm -Chest x-ray: No acute process. -CT chest: No acute findings. -Laboratory studies: WBC 23.2, hemoglobin 16.6, platelet count 174. Sodium 129, potassium 6.0, CO2 18, BUN 87 and creatinine 1.65. Troponins 0.215, 1.27, 1.85. TSH 0.272. Acetone negative. -Home cardiac medications: Atorvastatin 40 mg at bedtime, Plavix 75 mg daily, Jardiance 25 mg daily 08/27/2024 Patient seen and examined on the cardiac stepdown unit. Yesterday, patient was started on amiodarone bolus followed by drip on protocol as well as Lopressor. We attempted Nitropaste but blood pressure was unable to tolerate it. Patient was also started on Entresto. Patient had a low blood pressure reading of 74/50 this morning. Heart rate is running in the 60s sinus and paced rhythm. Physical examination: Gen: This is 79-year-old female in no acute distress VS: reviewed HEENT: Head is atraumatic, normocephalic. Pupils equal, round. Sclerae is an icteric. NECK: Supple. No JVD. LUNGS: Clear to auscultation. No wheezes or rhonchi. No intercostal retractions. HEART: Regular rate and rhythm. No murmur. ABDOMEN: Soft No tenderness. EXTREMITIES: No pedal edema. No calf tenderness. NEUROLOGICAL: Patient is awake, alert and oriented x3. Assessment: Atrial fibrillation with RVR, currently controlled rate V. tach status post 4 shocks from defibrillator Ischemic cardiomyopathy status post AICD Diabetes mellitus type 2 Hyponatremia Hyperkalemia Elevated troponin secondary to defibrillator discharge Chest pain secondary to defibrillator discharge Status post Watchman procedure Plan: Discontinue amiodarone drip and start patient on oral amiodarone 400 mg twice daily for 1 week and then 200 mg twice daily Decrease Lopressor to 12.5 mg twice daily Discontinue Nitropaste Parameters placed on Entresto 24-26 mg daily to hold if systolic blood pressure less than 95 Discontinue heparin drip Discontinue Plavix as patient states this was discontinued by her primary buckle coverer Continue patient on aspirin 81 mg daily Continue Farxiga Further recommendations to follow based upon clinical course Nurse practitioner note has been reviewed, I agree with documented findings and plan of care. Patient was seen and examined. Objective - Vital Signs Vital signs: Vital Signs Temp 97.7 F 08/27/24 08:21 Pulse 61 08/27/24 08:21 Resp 16 08/27/24 08:21 BP 98/58 08/27/24 08:21 Pulse Ox 98 08/27/24 08:21 FiO2 Intake & Output 08/26/24 08/27/24 08/27/24 18:59 06:59 18:59 Intake Total 189.503 852.731 223.936 Balance 189.503 852.731 223.936 Weight 67.585 kg 73.6 kg 73.6 kg Intake: Intake, IV Titration 71.503 372.731 73.936 Amount Amiodarone 450 mg In 250 Dextrose 5% in Water 250 ml @ 0.5 MG/MIN 16.667 mls/hr IV .Q15H [facility] Rx#: [id number] Heparin Sod,Pork in 0.45% 71.503 122.731 73.936 NaCl 25,000 unit In 0.45 % NaCl 1 250ml.bag @ 12 UNITS/KG/HR 8.11 mls/hr IV .Q24H [facility] Rx#: [id number] Oral 118 480 150 Other: Voiding Method Toilet Toilet # Voids 1 1 - Labs CBC & Chem 7: 08/26/24 07:16 08/26/24 07:16 Labs: Abnormal Lab Results - Last 24 Hours (Table) 08/26/24 08/26/24 08/26/24 Range/Units 07:16 07:16 12:18 APTT (22.0-30.0) sec POC Glucose (mg/dL) 282 H (70-110) mg/dL Hemoglobin A1c 11.0 H (<=6.0) % HDL Cholesterol 64.40 H (40.00-60.00) mg/dL 08/26/24 08/26/24 08/27/24 Range/Units 17:22 20:08 07:40 APTT 84.7 H (22.0-30.0) sec POC Glucose (mg/dL) 241 H 323 H (70-110) mg/dL Hemoglobin A1c (<=6.0) % HDL Cholesterol (40.00-60.00) mg/dL
[2024-08-27 16:46] LABS: Glucose,Whole Blood 248 mg/dL (70-110)
--- NOTE | 2024-08-27 19:41 | P.PN ---
Progress Note - Text Progress Note Date: 08/27/24 Chief Complaint: AICD shock I am rounding for Myke Woody, who is unwell Very pleasant 79-year-old patient who follows with Dr. Myke Woody. Patient is follows with her coordinator skill training program done at [facility]. Prior history of coronary bypass. Recently [facility] where she was treated for RSV. She took her first treatment of DuoNeb today. Her AICD went off 3 times. And he decided to come to the ER. AICD interrogation showed patient had SVT then ventricular fibrillation. Then atrial fibrillation. She was shocked 4 times. Patient seen by cardiology earlier started on IV amiodarone and IV heparin. Patient also received some nitroglycerin and then dropped her blood pressure. Advised sitting up. Feeling comfortable. Having some anterior chest wall pain. Feeling better though. August 27: Patient feeling well. No further firing of AICD. On oral amiodarone 4 mg twice daily. Blood pressures running low. Hence discharge has been held. Tolerating diet. Active Medications Albuterol/Ipratropium (Ipratropium-Albuterol 3 Ml Neb) 3 ml INHALATION RT-Q6H PRN PRN Reason: Shortness Of Breath Amiodarone HCl (Amiodarone 200 Mg Tab) 400 mg PO BID [facility] Last Admin: 08/27/24 12:09 Dose: 400 mg Aspirin (Aspirin 81 Mg) 81 mg PO DAILY [facility] Atorvastatin Calcium (Atorvastatin 40 Mg Tab) 40 mg PO HS [facility] Last Admin: 08/26/24 19:45 Dose: 40 mg Dapagliflozin (Dapagliflozin Propanediol 10 Mg Tablet) 10 mg PO DAILY [facility] Last Admin: 08/27/24 08:36 Dose: 10 mg Dextrose/Water (Dextrose 50% Syringe 50 Ml) 25 ml IVP PER PROTOCOL PRN; Protocol PRN Reason: Hypoglycemia Dextrose/Water (Dextrose 50% Syringe 50 Ml) 50 ml IVP PER PROTOCOL PRN; Protocol PRN Reason: Hypoglycemia Insulin Aspart (Insulin Aspart (Novolog) 100 Unit/Ml Vial) 0 unit SQ [facility]; Protocol Last Admin: 08/27/24 16:53 Dose: 2 unit Insulin Detemir (Insulin Detemir (Levemir) 100 Unit/Ml Syr) 20 unit SQ DAILY@0700 [facility] Last Admin: 08/27/24 06:11 Dose: 20 unit Methimazole (Methimazole 5 Mg Tab) 5 mg PO BID [facility] Last Admin: 08/27/24 08:37 Dose: 5 mg Metoprolol Tartrate (Metoprolol Tartrate 12.5 Mg Tab) 12.5 mg PO BID [facility] Nitroglycerin (Nitroglycerin Sl Tabs 0.4 Mg Tab) 0.4 mg SUBLINGUAL Q5M PRN PRN Reason: Chest Pain Last Admin: 08/26/24 07:58 Dose: 0.4 mg Pantoprazole Sodium (Pantoprazole 40 Mg Tablet) 40 mg PO DAILY [facility] Last Admin: 08/27/24 08:36 Dose: 40 mg Sacubitril/Valsartan (Sacubitril/Valsartan 24 Mg-26 Mg Tablet) 1 each PO DAILY [facility] Last Admin: 08/27/24 08:36 Dose: 1 each Social history: . Does not smoke or drink alcohol. Physical examination: VITAL SIGNS: 97.7, 69, 16, 95 x 50, 96% room air GENERAL: BMI 28.2, comfortable EYES: Pupils equal. Conjunctiva rachel l. HEENT: External appearance of nose and ears normal, oral cavity grossly normal. NECK: JVD not raised; masses not palpable. HEART: First and second heart sounds are normal; no edema. LUNGS: Respiratory rate normal; clear to auscultation. ABDOMEN: Soft, nontender, liver spleen not palpable, no masses palpable. PSYCH: Alert and oriented x3; mood and affect rachel l. MUSCULOSKELETAL:No Clubbing/cyanosis;muscles-grossly intact. OA INVESTIGATIONS, reviewed in the clinical context: August 26: White count 23.2 hemoglobin 16.6 platelets 134 sodium 138 potassium 4.3 BUN 79 creatinine 1.49 blood glucose 148 AST 33 ALT 46 EKG tracing personally reviewed by me-ventricular paced rhythm LDL 68 CT chest: Unremarkable sternotomy wires. Chest x-ray film personally reviewed by me-unremarkable. AICD/pacemaker Assessment plan: -Recurrent SVT, ventricular fibrillation then A-fib as per interrogation as patient came in for AICD firing of at least 3 times at home. IV amiodarone-now amiodarone to 400 mg twice daily. IV heparin.-Discontinued Lopressor 12.5 p.o. twice daily Cardiology following. -Ischemic cardiopathy, status post AICD Entresto -Troponinemia secondary to AICD firing. No ACS -Hyperlipidemia Lipitor 40 mg nightly -GERD Protonix 40 mg a day -Diabetes mellitus type 2 chronically on insulin Lantus. Follow Accu-Cheks with sliding scale. Jardiance. -Hyperthyroidism Tapazole Continue current medications. Blood pressure on the low side. Follow with cardiology. Past Medical History Past Medical History: Heart Failure, Diabetes Mellitus, Hypertension History of Any Multi-Drug Resistant Organisms: None Reported Past Surgical History: Pacemaker Additional Past Surgical History / Comment(s): double bypass 2022, watchman 2023 Past Psychological History: No Psychological Hx Reported Smoking Status: Never smoker Past Alcohol Use History: None Reported Past Drug Use History: None Reported
[2024-08-27] MEDS: METOPROLOL TARTRATE 12.5 MG TAB PO SCH (20:23)
[2024-08-27 20:28] LABS: Glucose,Whole Blood 208 mg/dL (70-110)
[2024-08-28 06:14] LABS: Glucose,Whole Blood 136 mg/dL (70-110)
[2024-08-28 07:53] VITALS: RESP 16
[2024-08-28] MEDS: ASPIRIN 81 MG PO SCH (07:56)
[2024-08-28 11:02] VITALS: BP 89/59; PULSE 65; TEMP 98.1
--- NOTE | 2024-08-28 11:11 | P.PN ---
Subjective Progress Note Date: 08/28/24 Reason for Consult (text): Elevated troponin History of present illness: This is an 79-year-old female patient that follows with a nitroglycerin supervisor at [facility] with past medical history of syncopal episode in August 2022, coronary artery disease status post CABG with OROURKE to LAD, SVG to OM 2 in January 2023, left bundle branch block, ischemic cardiomyopathy with chronic heart failure with reduced EF of 30 to 35% followed by reduction to 20% status post AICD 02/03/2024, atrial fibrillation, status post Watchman procedure, bilateral carotid surgery, PAD left lower extremity worse than right, dyslipidemia and hypertriglyceridemia, diabetes mellitus type 2, hypertension, former smoker, hyperthyroidism. We have been asked to evaluate the patient for elevated troponins. Patient presented to the hospital because her defibrillator went off. Patient states that she recently treated for RSV and was at [facility] at the beginning of August. She has an albuterol nebulizer treatment that she used for the first time yesterday and was feeling quite shaky after that. Patient went to brick picker a pop that her daughter was giving her and she felt her ICD go off. She feels that it went off about 3-4 times. She also had some chest pain this morning that she described as a 7 out of 10. Her blood pressure was elevated as well when she arrived. Regarding RSV, she only has a small amount of cough left. Blood pressure 127/74, heart rate 89, pulse ox 94% on room air, afebrile. Patient is seen today in the emergency center waiting for bed on the cardiac stepdown unit. ICD interrogation reviewed which revealed episode of atrial fibrillation, 2 episodes of SVT, to ventricular fibrillation and a total of 4 shocks were given. -EKG: Paced rhythm with ventricular rate of 106, #2 paced rhythm at 72 bpm -Chest x-ray: No acute process. -CT chest: No acute findings. -Laboratory studies: WBC 23.2, hemoglobin 16.6, platelet count 174. Sodium 129, potassium 6.0, CO2 18, BUN 87 and creatinine 1.65. Troponins 0.215, 1.27, 1.85. TSH 0.272. Acetone negative. -Home cardiac medications: Atorvastatin 40 mg at bedtime, Plavix 75 mg daily, Jardiance 25 mg daily 08/27/2024 Patient seen and examined on the cardiac stepdown unit. Yesterday, patient was started on amiodarone bolus followed by drip on protocol as well as Lopressor. We attempted Nitropaste but blood pressure was unable to tolerate it. Patient was also started on Entresto. Patient had a low blood pressure reading of 74/50 this morning. Heart rate is running in the 60s sinus and paced rhythm. 08/28/2024 Patient seen and examined. Yesterday afternoon, blood pressure was low and medication adjustments were made. Blood pressure this morning is 102/60 and she did receive Entresto with repeat blood pressure 89/59. Heart rate is running 59-65 and pulse ox 90% on room air. Physical examination: Gen: This is 79-year-old female in no acute distress VS: reviewed HEENT: Head is atraumatic, normocephalic. Pupils equal, round. Sclerae is anicteric. NECK: Supple. No JVD. LUNGS: Clear to auscultation. No wheezes or rhonchi. No intercostal retractions. HEART: Regular rate and rhythm. No murmur. ABDOMEN: Soft No tenderness. EXTREMITIES: No pedal edema. No calf tenderness. NEUROLOGICAL: Patient is awake, alert and oriented x3. Assessment: Atrial fibrillation with RVR, currently controlled rate V. tach status post 4 shocks from defibrillator Ischemic cardiomyopathy status post AICD Diabetes mellitus type 2 Hyponatremia Hyperkalemia Elevated troponin secondary to defibrillator discharge Chest pain secondary to defibrillator discharge Status post Watchman procedure Plan: Continue patient on oral amiodarone 400 mg twice daily for 1 week and then 200 mg twice daily, Lopressor to 12.5 mg twice daily, Entresto 24-26 mg daily to hold if systolic blood pressure less than 105 Continue patient on aspirin 81 mg daily Continue Princega/Basilioance Patient is cleared for discharge from cardiology and will follow-up with her primary cardiology in 1 week. Prescriptions for new medications have been sent to her pharmacy. Nurse practitioner note has been reviewed, I agree with documented findings and plan of care. Patient was seen and examined. Objective - Vital Signs Vital signs: Vital Signs Temp 97.8 F 08/28/24 07:52 Pulse 59 L 08/28/24 08:03 Resp 16 08/28/24 08:03 BP 102/60 08/28/24 07:52 Pulse Ox 100 01/17/25 08:21 FiO2 Intake & Output 08/27/24 08/28/24 08/28/24 18:59 06:59 18:59 Intake Total 703.936 560 Balance 703.936 560 Weight 73.6 kg 73 kg Intake: IV 20 Invasive Line 3 10 Invasive Line 5 10 Intake, IV Titration 73.936 Amount Heparin Sod,Pork in 0.45% 73.936 NaCl 25,000 unit In 0.45 % NaCl 1 250ml.bag @ 12 UNITS/KG/HR 8.11 mls/hr IV .Q24H [facility] Rx#: [id number] Oral 630 540 Other: Voiding Method Toilet Toilet Toilet # Voids 2 1 1 - Labs CBC & Chem 7: 08/26/24 07:16 08/26/24 07:16 Labs: Abnormal Lab Results - Last 24 Hours (Table) 08/27/24 08/27/24 08/27/24 Range/Units 11:24 16:44 20:25 POC Glucose (mg/dL) 155 H 248 H 208 H (70-110) mg/dL 08/28/24 Range/Units 06:13 POC Glucose (mg/dL) 136 H (70-110) mg/dL
[2024-08-28 11:49] LABS: Glucose,Whole Blood 182 mg/dL (70-110)
--- NOTE | 2024-08-28 17:11 | P.DS ---
Providers Date of admission: 08/25/24 20:55 Expected date of discharge: 08/28/24 Attending physician: Myke Woody Consults: 08/25/24 23:08 Consult Physician Routine Consulting Provider: Herb Sutherland Consult Reason/Comments: Elevated trop Do you want consulting provider notified?: Yes Primary care physician: Myke Woody [facility] Course: Chief Complaint: AICD shock I am rounding for Myke Woody, who is unwell Very pleasant 79-year-old patient who follows with Dr. Myke Woody. Patient is follows with her shuttle final inspector done at [facility]. Prior history of coronary bypass. Recently [facility] where she was treated for RSV. She took her first treatment of DuoNeb today. Her AICD went off 3 times. And he decided to come to the ER. AICD interrogation showed patient had SVT then ventricular fibrillation. Then atrial fibrillation. She was shocked 4 times. Patient seen by cardiology earlier started on IV amiodarone and IV heparin. Patient also received some nitroglycerin and then dropped her blood pressure. Advised sitting up. Feeling comfortable. Having some anterior chest wall pain. Feeling better though. August 27: Patient feeling well. No further firing of AICD. On oral amiodarone 400 mg twice daily. Blood pressures running low. Hence discharge has been held. Tolerating diet. August 28: Doing well. Comfortable. Cleared by cardiology. Patient follow-up with her own shuttle final inspector. No dizziness no palpitation no shortness of breath. Discussed with patient . No dizziness Social history: . Does not smoke or drink alcohol. Physical examination: VITAL SIGNS: 98.1, 65, 16, 89 x 59, 98% room air GENERAL: BMI 28.2, comfortable EYES: Pupils equal. Conjunctiva rachel l. HEENT: External appearance of nose and ears normal, oral cavity grossly normal. NECK: JVD not raised; masses not palpable. HEART: First and second heart sounds are normal; no edema. LUNGS: Respiratory rate normal; clear to auscultation. ABDOMEN: Soft, nontender, liver spleen not palpable, no masses palpable. PSYCH: Alert and oriented x3; mood and affect archel l. MUSCULOSKELETAL:No Clubbing/cyanosis;muscles-grossly intact. OA INVESTIGATIONS, reviewed in the clinical context: August 26: White count 23.2 hemoglobin 16.6 platelets 134 sodium 138 potassium 4.3 BUN 79 creatinine 1.49 blood glucose 148 AST 33 ALT 46 EKG tracing personally reviewed by me-ventricular paced rhythm LDL 68 CT chest: Unremarkable sternotomy wires. Chest x-ray film personally reviewed by me-unremarkable. AICD/pacemaker Assessment plan: -Recurrent SVT, ventricular fibrillation then A-fib as per interrogation as patient came in for AICD firing of at least 3 times at home. IV amiodarone-now amiodarone to 400 mg twice daily. IV heparin.-Discontinued Lopressor 12.5 p.o. twice daily Cardiology following. -Ischemic cardiopathy, status post AICD Entresto. Lopressor. -Troponinemia secondary to AICD firing. No ACS -Hyperlipidemia Lipitor 40 mg nightly -GERD Protonix 40 mg a day -Diabetes mellitus type 2 chronically on insulin Lantus. Follow Accu-Cheks with sliding scale. Jardiance. -Hyperthyroidism Tapazole Disposition: Home Past Medical History Past Medical History: Heart Failure, Diabetes Mellitus, Hypertension History of Any Multi-Drug Resistant Organisms: None Reported Past Surgical History: Pacemaker Additional Past Surgical History / Comment(s): double bypass 2022, watchman 2023 Past Psychological History: No Psychological Hx Reported Smoking Status: Never smoker Past Alcohol Use History: None Reported Past Drug Use History: None Reported Plan - Discharge Summary Discharge Rx Participant: No New Discharge Prescriptions: New Aspirin 81 mg PO DAILY tab Amiodarone [Cordarone] 400 mg PO BID #70 tab Sacubitril/Valsartan [Entresto 24 mg-26 mg Tablet] 1 each PO DAILY #60 tab Metoprolol Tartrate [Lopressor] 12.5 mg PO BID #60 tab Continue Albuterol Sulfate [Albuterol Sulfate Hfa] 2 puff PO RT-QID PRN PRN Reason: Shortness Of Breath methIMAzole [Tapazole] 5 mg PO BID Ipratropium-Albuterol Nebulize [Duoneb 0.5 mg-3 mg/3 ml Soln] 3 ml INHALATION RT-Q6H PRN PRN Reason: Shortness Of Breath Insulin Glargine,Hum.rec.anlog [Toujeo Max Solostar] 20 units SQ DAILY Atorvastatin [Lipitor] 40 mg PO HS Empagliflozin [Jardiance] 25 mg PO DAILY Pantoprazole [Protonix] 40 mg PO DAILY Discontinued Clopidogrel [Plavix] 75 mg PO DAILY Discharge Medication List Albuterol Sulfate [Albuterol Sulfate Hfa] 2 puff PO RT-QID PRN 08/26/24 [History] Atorvastatin [Lipitor] 40 mg PO HS 08/26/24 [History] Empagliflozin [Jardiance] 25 mg PO DAILY 08/26/24 [History] Insulin Glargine,Hum.rec.anlog [Toujeo Max Solostar] 20 units SQ DAILY 08/26/24 [History] Ipratropium-Albuterol Nebulize [Duoneb 0.5 mg-3 mg/3 ml Soln] 3 ml INHALATION RT-Q6H PRN 08/26/24 [History] Pantoprazole [Protonix] 40 mg PO DAILY 08/26/24 [History] methIMAzole [Tapazole] 5 mg PO BID 08/26/24 [History] Amiodarone [Cordarone] 400 mg PO BID #70 tab 08/28/24 [Rx] Aspirin 81 mg PO DAILY tab 08/28/24 [Rx] Metoprolol Tartrate [Lopressor] 12.5 mg PO BID #60 tab 08/28/24 [Rx] Sacubitril/Valsartan [Entresto 24 mg-26 mg Tablet] 1 each PO DAILY #60 tab 08/28/24 [Rx] Follow up Appointment(s)/Referral(s): shuttle final inspectordr [Other] - 1 Week Myke Woody MD [Primary Care Provider] - 09/04/24 10:00 am Activity/Diet/Wound Care/Special Instructions: Follow-up with primary shuttle final inspector in 1 week. Hold Entresto if systolic blood pressure is less than 105. Discharge Disposition: HOME SELF-CARE
--- NOTE | 2024-09-01 11:52 | CDI ---
Documentation Clarification Form Date: 09/01/2024 09:30:31 AM From: Chelsey Cortes RN, CCDS Email: [email or web address] Admit Date: 08/25/2024 08:55:00 PM Patient Name: Darling Zavala Visit Number: [id number] Discharge Date: 08/28/2024 01:48:00 PM ATTENTION: The Clinical Documentation Specialists (CDI) and [facility] Coding Staff appreciate your assistance in clarifying documentation. Please respond to the clarification below the line at the bottom and electronically sign. The CDI & [facility] Coding staff will review the response and follow-up if needed. Please note: Queries are made part of the Legal Health Record. If you have any questions, please contact the author of this message via ITS. Doctor Dimitry Baker The patient had increasing troponin levels. Please clarify if there is an additional diagnosis and/or clinical significance related to this value. Patient history/risk factors: A fib, CHF, DM, HTN and recent AICD placement for recurring SVT. Presented after her ICD fired 3 times. Admitted with recurrent SVT, ventricular fibrillation then A-fib as per interrogation. Clinical indicators: 08/25-08/26 Troponins: 0.215-1.270-1.850 08/25 ED: "Defibrillator discharge, Hyperglycemia, Hyponatremia, Hyperkalemia, Elevated troponin." 08/26 Cardiology consult: "We have been asked to evaluate the patient for elevated troponins. Elevated troponin secondary to defibrillator discharge. Chest pain secondary to defibrillator discharge." 08/27 IM: "Troponinemia secondary to AICD firing. No ACS." 08/28 Discharge summary: "Recurrent SVT, ventricular fibrillation then A-fib as per interrogation as patient came in for AICD firing of at least 3 times at home." Treatment: s/p ICD interrogation - see above; Amiodarone drip 08/25-08/27; Amiodarone 400mg po BID 08/27-08/28; Heparin drip 08/25-08/27 Is there an additional diagnosis and/or clinical significance related to the above lab result/information: [ ] Type 2 MN due to ICD discharge from heart arrhythmia [ ] Non-ischemic with acute myocardial injury due to ICD discharge [ ] No additional diagnosis/Not clinically significant [ ] Other, please specify [ ] Unable to determine MTDD
== END 2024-08-28 13:48 | disposition home or self-care (01) | DRG 309 ==
LOC: EC 18:47 → 3SCARD 20:55
PROVIDERS: ADMIT Family Medicine; ATTEND Family Medicine
DX: I47.20 Ventricular tachycardia, unspecified (principal); E87.1 Hypo-osmolality and hyponatremia; I50.22 Chronic systolic (congestive) heart failure; I49.01 Ventricular fibrillation; I11.0 Hypertensive heart disease with heart failure; E11.65 Type 2 diabetes mellitus with hyperglycemia; Z95.810 Presence of automatic (implantable) cardiac defibrillator; I48.91 Unspecified atrial fibrillation; I25.5 Ischemic cardiomyopathy; E87.5 Hyperkalemia; E78.1 Pure hyperglyceridemia; R79.89 Other specified abnormal findings of blood chemistry; I47.10 Supraventricular tachycardia, unspecified; E05.90 Thyrotoxicosis, unspecified without thyrotoxic crisis or storm; I25.10 Atherosclerotic heart disease of native coronary artery without angina pectoris; Z95.1 Presence of aortocoronary bypass graft; Z87.891 Personal history of nicotine dependence; Z79.899 Other long term (current) drug therapy; Z79.84 Long term (current) use of oral hypoglycemic drugs; Z79.82 Long term (current) use of aspirin; Z79.4 Long term (current) use of insulin; Z79.02 Long term (current) use of antithrombotics/antiplatelets; Z88.0 Allergy status to penicillin; Z88.5 Allergy status to narcotic agent
CPT/HCPCS: 36415; 71046; 71250; 80053; 80061; 82009; 83036; 83735; 84443; 84484; 85025; 85610; 85730; 93005; 94760; 96361; 96365; 96367; 96375; 96376; 99285